=== PATIENT | female | born 1980 | race Caucasian/White ===

== ENCOUNTER 2023-06-10 09:17 | Emergency (ER) | payer BC, SELFPAY ==
[2023-06-10 09:20] VITALS: BP 117/77; PULSE 105; RESP 18; TEMP 36.2; O2SAT 100; BMI 22.5
[2023-06-10 09:35] LABS: Appearance Urine Slightly Cloudy (Clear); Bilirubin Urine Negative (Negative); Blood Urine Trace-intact (Negative); Color Urine Light yellow (Yellow); Glucose Urine Negative (Negative); Ketones Urine Negative (Negative); Leukocyte Esterase Urine Negative (Negative); Nitrite Urine Negative (Negative); Protein Urine Negative (Negative); Urobilinogen Urine 0.2 (0.2-1.0)
--- NOTE | 2023-06-10 09:39 | ED_ITS ---
HPI - General Adult General Chief complaint: Flank Pain Stated complaint: Kidney pain Time Seen by Provider: 06/10/23 09:38 History of Present Illness HPI narrative: left sided flank pain that started last evening 42-year-old woman presenting to the emergency department with concern of left flank pain since last night. Quite painful. Upon questioning does reveal a personal history of kidney stones. Has been maybe a year though sounds like there was more of an infectious process about a year ago when she was seen at [place]. Unsure about stone burden. Has never had to have intervention; has typically passed the stones on her own. She has not had a fever. No dysuria. Has just finally urinated here in the emergency department. She is feeling more discomfort into her abdomen but does not feel that if this is a stone that is really moved. Related Data Previous Rx's Medication Instructions Recorded venlafaxine 37.5 mg 37.5 mg PO QDAY #7 caps 02/13/23 capsule,extended release 24 hr venlafaxine 75 mg capsule,extended 75 mg PO QAM #7 caps 02/13/23 release 24 hr venlafaxine 150 mg 150 mg PO QAM #30 caps 04/17/23 capsule,extended release 24 hr dextroamphetamine-amphetamine ER 30 mg PO QAM #30 caps 05/14/23 30 mg 24hr capsule,extend release (Adderall XR) dextroamphetamine-amphetamine ER 30 mg PO QAM #30 caps 05/14/23 30 mg 24hr capsule,extend release (Adderall XR) dextroamphetamine-amphetamine ER 30 mg PO QAM #30 caps 05/14/23 30 mg 24hr capsule,extend release (Adderall XR) dextroamphetamine-amphetamine 10 10 mg PO QDAY #30 tabs 05/16/23 mg tablet (Adderall) dextroamphetamine-amphetamine 10 10 mg PO QDAY #30 tabs 05/16/23 mg tablet (Adderall) dextroamphetamine-amphetamine 10 10 mg PO QDAY #30 tabs 05/16/23 mg tablet (Adderall) trazodone 50 mg tablet 50 - 150 mg (1 - 3 x 50 mg) PO QPM 05/16/23 #90 tabs ketorolac 10 mg tablet 10 mg PO QID PRN pain 5 days #15 06/10/23 tabs tamsulosin 0.4 mg capsule (Flomax) 0.4 mg PO DAILY #15 caps 06/10/23 Allergies Allergy/AdvReac Type Severity Reaction Status Date / Time No Known Allergies Allergy Unknown Verified 02/13/23 13:28 Review of Systems Status of ROS: Reports: 6 or more systems reviewed and unremarkable except as noted in History and below [facility] Medical History Back pain ?M54.9 - Dorsalgia, unspecified (ICD-10) Surgical History History of tubal ligation ?Z98.51 - Tubal ligation status (ICD-10) History of bilateral breast reduction surgery ?Z98.890 - Other specified postprocedural states (ICD-10) Family History (Updated 07/02/22 @ 10:31 by Darrius Nunn) Father Coronary artery disease Social History Narrative: does not drink alcohol does not use illicit drugs smoker- currently 1 ppd. has smoked for approx 20 years Smoking Status: Smoker, status unknown Exam Narrative: Exam Narrative: Pleasant. Clearly uncomfortable. Brow is furrowed in discomfort. She rolled over onto her right side facing her significant other. Her left hand is at her left low abdomen/flank area. She is breathing and mildly labored manner again I think representing her discomfort. Skin is warm and dry. She is well-perfused peripherally. Lungs appear to be clear. Heart is in an elevated rate regular rhythm. Abdomen is quite sore to percussion in the left flank. Less sore to palpation into the left abdomen. Const: Vital Signs, click to edit/add: Vital Signs - 24 hr 06/10/23 09:20 Temperature 97.2 F L Pulse Rate [Right Pulse Oximeter] 105 H Respiratory Rate 18 Blood Pressure [Ri ght Upper Arm] 117/77 Pulse Oximetry 100 Oxygen Delivery Me thod Room Air Documenting provider has reviewed patient's vital signs: yes Course Vital Signs Vital signs: Initial Vital Signs Temperature 97.2 F L 06/10/23 09:20 Temperature Source Temporal Artery Scan 06/10/23 09:20 Pulse Rate 105 H 06/10/23 09:20 Respiratory Rate 18 06/10/23 09:20 Blood Pressure 117/77 06/10/23 09:20 Blood Pressure Mean 90 06/10/23 09:20 Blood Pressure Position Sitting 06/10/23 09:20 Pulse Oximetry 100 06/10/23 09:20 Oxygen Delivery Method Room Air 06/10/23 09:20 Vital Signs Temperature 97.2 F L 06/10/23 09:20 Pulse Rate 105 H 06/10/23 09:20 Respiratory Rate 18 06/10/23 09:20 Blood Pressure 117/77 06/10/23 09:20 Pulse Oximetry 100 06/10/23 09:20 Oxygen Delivery Method Room Air 06/10/23 09:20 Temperature 97.2 F L 06/10/23 09:20 Pulse Rate 91 06/10/23 11:32 Respiratory Rate 16 06/10/23 11:32 Blood Pressure 117/77 06/10/23 09:20 Pulse Oximetry 96 06/10/23 11:32 Oxygen Delivery Method Room Air 06/10/23 11:32 Medical Decision Making MDM Narrative Medical decision making narrative: Given history I would presume ureteral stone and colic. Will evaluate though for infection yet in urinalysis still pending results. Given duration of time since it has been since she had a CT we will go ahead and image with this CT scan. Other differential does include diverticulitis, ovarian cyst or torsion, vascular disruption, radicular back pain, shingles eruption though she does not have any rash. IV was initiated. Clearly uncomfortable in given ketorolac and 4 mg of morphine. Zofran as well. This did help temporarily but pain escalated again. Was re-dosed with hydromorphone diphenhydramine proceeding. Seems to become nauseated with opiates CT scan abdomen and pelvis without contrast was reviewed by me. There are calcifications in the pelvis that I can not say for sure are related to the urinary tract system. I do not appreciate hydronephrosis. No stone burden. By my read somewhat enlarged bladder. When I ask Syeda about this though she indicates that did not have any trouble urinating here and seems to felt like she emptied. Urinalysis shows trace intact blood. No other indication of infection. She does endorse having some ovarian cysts in the past but has never had 1 rupture. Over-read of imaging by Radiology as below Impression: Mild right-sided pelvocaliectasis without evidence of definite obstructive radiopaque calculus. No evidence of left-sided hydronephrosis or radiopaque nonobstructive calculus. Moderate stool seen throughout the colon without evidence of focal abnormality. No definite acute intra-abdominal abnormality. She does report ultimately being diagnosed in the past with kidney stones though absent initial findings on imaging. No secondary findings to suggest ovarian cyst. No inflammatory changes to suggest diverticulitis. Presentation here today I would have expected either ruptured ovarian cyst or ureteral stone and colic. Suppose could have ureteral colic independent of a stone but again with full bladder and without hydronephrosis though there was some prominent renal pelvocaliectasis though on the right side and her discomfort is left-sided. White count also is elevated of unclear etiology. Over time in the emergency department overall improved. She felt she could manage at home. See patient discharge plan Medical Records Medical records reviewed: Yes I reviewed the patient's medical records Lab Data Lab results reviewed: Yes I reviewed the patient's lab results Labs: Lab Results 06/10/23 06/10/23 Range/Units 10:15 Unknown WBC 14.39 H (4.50-11.00) K/uL RBC 4.55 (4.00-5.20) m/uL Hgb 14.9 (12.0-16.0) gm/dL Hct 44.0 (33.0-51.0) % MCV 97 (80-100) fL MCH 33 (26-34) pg MCHC 34 (32-36) gm/dL RDW Coeff of Jerri 12.7 (11.5-15.5) % Plt Count 302 (140-440) K/uL Neut % (Auto) 82.2 H (42.0-72.0) % Lymph % (Auto) 11.7 L (20-44) % [place] % (Auto) 4.4 (0.0-11.0) % Eos % (Auto) 1.5 (0.0-7.0) % Baso % (Auto) 0.1 (0.0-3.0) % Neut # (Auto) 11.80 H (1.7-7.0) K/uL Lymph # (Auto) 1.70 (0.90-2.90) K/uL [place] # (Auto) 0.60 (0.00-0.90) K/UL Eos # (Auto) 0.20 (0.00-0.50) K/uL Baso # (Auto) 0.00 (0.00-0.30) K/uL Abs Immat Gran (auto) 0.00 (0.00-0.30) K/uL Imm/Tot Granulo (auto) 0.1 % Sodium 136 (135-149) mmol/L Potassium 4.5 (3.6-5.1) mmol/L Chloride 110 (96-114) mmol/L Carbon Dioxide 19 L (20-32) mmol/L Anion Gap 7 (7-15) mEq/L BUN 15 (5-24) mg/dL Creatinine 0.5 (0.5-1.5) mg/dL Estimated Creat Clear 131.89 Estimated GFR 120 ml/min Glucose 78 (60-115) mg/dL Calcium 8.8 (8.4-10.6) mg/dL Urine Color Light yellow (Yellow) Urine Appearance Slightly Cloudy A (Clear) Urine pH 6.0 (5.0-8.5) Ur Specific [place] 1.010 (1.000-1.030) Urine Protein Negative (Negative) Urine Glucose (UA) Negative (Negative) Urine Ketones Negative (Negative) Urine Blood Trace-intact A (Negative) Urine Nitrite Negative (Negative) Urine Bilirubin Negative (Negative) Urine Urobilinogen 0.2 (0.2-1.0) Ur Leukocyte Esterase Negative (Negative) Urine RBC 0-2 (0-2) Urine WBC 0-2 (0-5) Ur Squamous Epith Cells Moderate A (None-Few) Urine Bacteria Few A (None) Discharge Plan Discharge Clinical Impression: Acute neutrophilia, Flank pain Patient Disposition: Home w/ Parent or Adult Condition: Improved Additional Instructions: Focus on hydration with water. Can take up to 800 mg of ibuprofen per dose. If you prefer ketorolac is also available. Unfortunately tamsulosin/Flomax is not available in our [facility] and so I have sent your prescriptions to the pharmacy. Take the tamsulosin for presumed ureteral/urethral spasm and subsequent pain. Once your sure that things have settled down/stone passed probably do not need to take this medication anymore. Consider straining your urine over this next week. Return for marked increase in persistent pain, associated fever, repeated vomiting. Prescriptions: New ketorolac 10 mg tablet 10 mg PO QID PRN (Reason: pain) 5 Days Qty: 15 0RF tamsulosin [Flomax] 0.4 mg capsule 0.4 mg PO DAILY Qty: 15 0RF No Action venlafaxine 37.5 mg capsule,extended release 24hr 37.5 mg PO QDAY Qty: 7 0RF Rx Instructions: 1 po daily for 1 week then increase to 75mg venlafaxine 75 mg capsule,extended release 24hr 75 mg PO QAM Qty: 7 0RF Rx Instructions: 1 po daily for 1 week then increase 150mg venlafaxine 150 mg capsule,extended release 24hr 150 mg PO QAM Qty: 30 0RF dextroamphetamine-amphetamine [Adderall XR] 30 mg capsule,extended release 24hr 30 mg PO QAM Qty: 30 0RF dextroamphetamine-amphetamine [Adderall XR] 30 mg capsule,extended release 24hr 30 mg PO QAM Qty: 30 0RF dextroamphetamine-amphetamine [Adderall XR] 30 mg capsule,extended release 24hr 30 mg PO QAM Qty: 30 0RF trazodone 50 mg tablet 50 - 150 mg PO QPM Qty: 90 3RF dextroamphetamine-amphetamine [Adderall] 10 mg tablet 10 mg PO QDAY Qty: 30 0RF dextroamphetamine-amphetamine [Adderall] 10 mg tablet 10 mg PO QDAY Qty: 30 0RF dextroamphetamine-amphetamine [Adderall] 10 mg tablet 10 mg PO QDAY Qty: 30 0RF Follow Up/Referrals: Jasper Mercado PA-C [Primary Care Provider] - Stand Alone Forms: [facility] Info Instructions
[2023-06-10 09:54] LABS: RBC Urine 0-2 (0-2)
[2023-06-10 09:55] LABS: Bacteria Urine Few; Squamous Epithelial Cell Urine Moderate (None-Few); WBC Urine 0-2 (0-5)
--- NOTE | 2023-06-10 10:16 | CRLHL7_ITS ---
For Patients: As a result of the Century Cures Act, medical imaging exams and procedure reports are released immediately into your electronic medical record. You may view this report before your referring provider. If you have questions, please contact your health care provider. Indication: Left flank pain, history of stones Technique: Volumetric multidetector CT images of the abdomen and pelvis were without the administration of intravenous contrast. Comparison: None available. Findings: There is basilar atelectasis with mildly increased interstitial markings likely representing minimal pulmonary vascular congestion and calcified granuloma in the left lower lobe. The liver is normal in attenuation without intrahepatic biliary ductal dilatation. The gallbladder is unremarkable without evidence of radiopaque calculus. There is no significant common biliary ductal dilatation or abrupt cut off. The spleen is normal in attenuation and size. The stomach and duodenum are grossly unremarkable. The pancreas is normal in attenuation without significant atrophy. The adrenal glands are unremarkable. There is mild right-sided pelvocaliectasis without evidence of obstructive radiopaque calculus. There is moderate stool seen throughout the colon with minimal distal colonic diverticulosis without definite evidence of diverticulitis. The appendix is unremarkable. There is no significant mesenteric, retroperitoneal, or pelvic sidewall lymph nodes. The aorta is nonaneurysmal. There is no significant atherosclerotic disease appreciated. There is prior hysterectomy. There is no free fluid or free air. There is mild diastasis of the rectus musculature. The lumbar vertebral body heights are grossly maintained in satisfactory alignment without evidence of displaced fracture, lytic or blastic lesion. Impression: Mild right-sided pelvocaliectasis without evidence of definite obstructive radiopaque calculus. No evidence of left-sided hydronephrosis or radiopaque nonobstructive calculus. Moderate stool seen throughout the colon without evidence of focal abnormality. No definite acute intra-abdominal abnormality. Please note that all CT scans at this facility use dose modulation, iterative reconstruction, and/or weight-based dosing when appropriate to reduce radiation dose to as low as reasonably achievable. Dictated by Kee Bustos MD @ 06/10/2023 11:39:07 AM (Electronically Signed)
[2023-06-10 10:25] LABS: Basophils Percent Auto 0.1 % (0.0-3.0); Eosinophils Percent Auto 1.5 % (0.0-7.0); Hemoglobin* 14.9 gm/dL (12.0-16.0); Immature Granulocytes Pct Auto 0.1 %; Lymphocytes Percent Auto 11.7 % (20-44); Mean Corpuscular HGB Conc 34 gm/dL (32-36); Mean Corpuscular Hemoglobin 33 pg (26-34); Mean Corpuscular Volume 97 fL (80-100); Monocytes Percent Auto 4.4 % (0.0-11.0); Neutrophils Percent Auto 82.2 % (42.0-72.0); Platelet Count* 302 K/uL (140-440); RDW Coefficient of Variation % 12.7 % (11.5-15.5); Red Blood Count 4.55 m/uL (4.00-5.20); White Blood Count* 14.39 K/uL (4.50-11.00)
[2023-06-10] MEDS: 0.9 % SODIUM CHLORIDE 1000 ml 1,000 ML IV (10:25)
[2023-06-10] MEDS: KETOROLAC 30 MG/ML inj IVP (10:25)
[2023-06-10] MEDS: MORPHINE 4 MG/ML INJ IVP (10:26)
[2023-06-10] MEDS: ONDANSETRON 2 MG/ML inj 4 MG IVP (10:26)
[2023-06-10 10:27] VITALS: O2SAT 94
[2023-06-10 10:27] LABS: Slide Review Reflex No
[2023-06-10 10:30] VITALS: PULSE 104; RESP 20; O2SAT 95
[2023-06-10 10:44] LABS: Chloride* 110 mmol/L (96-114); Potassium* 4.5 mmol/L (3.6-5.1); Sodium* 136 mmol/L (135-149)
[2023-06-10 10:47] LABS: Anion Gap 7 mEq/L (7-15); Blood Urea Nitrogen* 15 mg/dL (5-24); Carbon Dioxide* 19 mmol/L (20-32); Creatinine* 0.5 mg/dL (0.5-1.5); Est. Creatinine Clearance* 131.89; Estimated Glomerular Filt Rate 120 ml/min; Glucose* 78 mg/dL (60-115)
[2023-06-10 10:48] LABS: Calcium* 8.8 mg/dL (8.4-10.6)
[2023-06-10] MEDS: HYDROmorphone 0.5 mg/0.5 ml inj IVP (11:27)
[2023-06-10] MEDS: diphenhydrAMINE 50 MG/ML inj 12.5 MG IVP (11:27)
[2023-06-10 11:32] VITALS: PULSE 91; RESP 16; O2SAT 96
== END 2023-06-10 12:47 | disposition home or self-care (01) ==
PROVIDERS: Emergency Provider Family Medicine; PCP Physician Assistant Medical
DX: D70.9 Neutropenia, unspecified (principal); R10.9 Unspecified abdominal pain
CPT/HCPCS: 36415; 74176; 80048; 81001; 85025; 87086; 94761; 96361; 96374; 96375; 99284; J1170; J1200; J1885; J2270; J2405; J7030

== ENCOUNTER 2023-11-18 18:30 | Emergency (ER) | payer BC, SELFPAY ==
[2023-11-18] VITALS (14 sets, daily range): BP systolic 113–138; BP diastolic 76–88; PULSE 88–99; RESP 20; TEMP 37.1; O2SAT 92–100; BMI 22.5
--- NOTE | 2023-11-18 18:59 | XR_ITS ---
Patient: ANA MARÍA VARGAS Facility:?[facility] Patient ID:?[id number] Site Patient ID:?[id number]. Site :?[id number] Study:?XRay-Chest 2 VIEW-11/18/2023 7:49:31 PM Ordering Physician:ALFA Final Report: INDICATION: Right lower chest and right upper quadrant pain. TECHNIQUE: Chest 2 views. COMPARISON: None. FINDINGS: Cardiovascular and mediastinum: Heart size and vasculature are normal in caliber and appearance. Lungs and pleural spaces: Mild right basilar patchy opacities. Left basilar calcified granuloma. No pleural effusions or pneumothorax. Bones and soft tissues: No significant findings. IMPRESSION: Mild right basilar patchy opacities, nonspecific may reflect atelectasis or infiltrates. Dictated by Anil Jasmine MD @ 11/18/2023 9:04:59 PM Signed by:?Anil Jasmine MD @11/18/2023 9:04:59 PM (Electronic Signature)
--- NOTE | 2023-11-18 19:13 | ED_ITS ---
HPI - General Adult General Date Seen: 11/18/23 Chief complaint: Chest Pain Stated complaint: R side chest pain Time Seen by Provider: 11/18/23 18:53 Source: patient Mode of arrival: ambulatory Limitations: no limitations History of Present Illness HPI narrative: Patient is a 43-year-old woman who presents with 4 days of gradually worsening right lower chest /right upper quadrant pain. She says initially was localized but now radiates to the back and to her shoulder blade. It hurts to take a deep breath, but she does not otherwise feel short of breath. She denies fever, cough, leg swelling or pain, she has had nausea but denies vomiting, appetite has been absent. She has not had any urinary symptoms, diarrhea, black or bloody stools. She denies history of similar pain. She denies significant medical history, no prior abdominal surgeries. She denies regular alcohol use. She does smoke cigarettes. No allergies. She has tried ibuprofen and Tylenol at home and says they have not helped at all. Pain is more severe when she lays down. Related Data Previous Rx's Medication Instructions Recorded dextroamphetamine-amphetamine 10 10 mg PO QDAY #30 tabs 11/13/23 mg tablet (Adderall) dextroamphetamine-amphetamine 10 10 mg PO QDAY #30 tabs 11/13/23 mg tablet (Adderall) dextroamphetamine-amphetamine 10 10 mg PO QDAY #30 tabs 11/13/23 mg tablet (Adderall) dextroamphetamine-amphetamine ER 30 mg PO QAM #30 caps 11/13/23 30 mg 24hr capsule,extend release (Adderall XR) dextroamphetamine-amphetamine ER 30 mg PO QAM #30 caps 11/13/23 30 mg 24hr capsule,extend release (Adderall XR) dextroamphetamine-amphetamine ER 30 mg PO QAM #30 caps 11/13/23 30 mg 24hr capsule,extend release (Adderall XR) trazodone 50 mg tablet 50 - 150 mg (1 - 3 x 50 mg) PO QPM 11/13/23 #90 tabs omeprazole 40 mg capsule,delayed 40 mg PO DAILY #10 caps 11/18/23 release Allergies Allergy/AdvReac Type Severity Reaction Status Date / Time No Known Allergies Allergy Unknown Verified 11/13/23 13:58 Review of Systems Status of ROS: Reports: 10 or more systems reviewed and unremarkable except as noted in History and below [facility] Medical History Anxiety ?F41.9 - Anxiety disorder, unspecified (ICD-10) Back pain ?M54.9 - Dorsalgia, unspecified (ICD-10) Surgical History History of tubal ligation ?Z98.51 - Tubal ligation status (ICD-10) History of bilateral breast reduction surgery ?Z98.890 - Other specified postprocedural states (ICD-10) Family History Father Coronary artery disease Social History Narrative: does not drink alcohol does not use illicit drugs smoker- currently 1 ppd. has smoked for approx 20 years Smoking Status: Smoker, status unknown Little interest or pleasure in doing things: not at all Feeling down, depressed, or hopeless: not at all Exam Narrative: Exam Narrative: Vital signs as noted above. In general, an alert, Nontoxic middle-aged woman. She looks uncomfortable. Bed is at 45?, she does not want it laid flatter. Head: Normocephalic, atraumatic. Eyes: Pupils are equal reactive. Extraocular movements are full. Conjunctivae are normal. no icterus. ENT: Mucous membranes are moist. Throat is normal. Neck: Supple without lymphadenopathy. Heart: Mildly tachycardic, regular. No obvious murmur. No obvious rub. Lungs: Clear bilaterally. No increased work of breathing, crackles or wheezes. Abdomen: Soft, nondistended. She has right upper quadrant tenderness, positive Hernandez sign. She does not have significant lower abdominal tenderness or left- sided abdominal tenderness. No rebound guarding or rigidity. Extremities: Well perfused. No edema. No calf tenderness. Pulses intact. Neurologic: Patient is alert and oriented to person and place. Speech is fluent. Face is symmetric. Moves all extremities equally. Affect: Normal. Skin: Warm and dry. Well perfused. Const: Vital Signs, click to edit/add: Vital Signs - 24 hr 11/18/23 18:45 11/18/23 18:58 11/18/23 19:30 Temperature 98.8 F Pulse Rate 97 Pulse Rate [Pulse Oximeter] 95 Respiratory Rate 20 Blood Pressure Blood Pressure [Ri ght Upper Arm] 138/88 Pulse Oximetry 97 97 97 Oxygen Delivery Me thod Room Air 11/18/23 19:31 11/18/23 19:32 11/18/23 19:50 Temperature Pulse Rate 95 99 88 Pulse Rate [Pulse Oximeter] Respiratory Rate Blood Pressure 130/87 Blood Pressure [Ri ght Upper Arm] Pulse Oximetry 95 95 98 Oxygen Delivery Me thod 11/18/23 20:00 11/18/23 20:01 11/18/23 20:15 Temperature Pulse Rate 94 88 92 Pulse Rate [Pulse Oximeter] Respiratory Rate Blood Pressure 116/76 Blood Pressure [Ri ght Upper Arm] Pulse Oximetry 99 99 100 Oxygen Delivery Me thod 11/18/23 20:30 11/18/23 20:31 11/18/23 20:45 Temperature Pulse Rate 93 93 96 Pulse Rate [Pulse Oximeter] Respiratory Rate Blood Pressure 135/80 Blood Pressure [Ri ght Upper Arm] Pulse Oximetry 92 94 97 Oxygen Delivery Me thod 11/18/23 21:00 11/18/23 21:01 Temperature Pulse Rate 92 96 Pulse Rate [Pulse Oximeter] Respiratory Rate Blood Pressure 113/85 Blood Pressure [Ri ght Upper Arm] Pulse Oximetry 92 93 Oxygen Delivery Me thod Documenting provider has reviewed patient's vital signs: yes Course Course ED Course: Patient presents with gradually worsening right upper quadrant/ right lower chest pain for the past several days. She does have abdominal tenderness, symptoms seem more likely to be intra-abdominal or retroperitoneal rather than in the chest, but diagnostic considerations also include pneumonia, pulmonary embolism, pleural effusion, pneumothorax. Also consider cholecystitis, biliary colic, pancreatitis, renal colic, pyelonephritis, diverticulitis among others. Appendicitis felt to be less likely given the absence of any lower abdominal tenderness. Initial interventions include placement of an IV, an EKG, medications to include Toradol, morphine, Zofran and a L of normal saline. Labs ordered. I did a bedside ultrasound, I did not see significant wall thickening nor obvious gallstones, worsening but I did order a formal right upper quadrant ultrasound. Labs pending. Patient had normal labs with the exception of white blood cell count of 13. Hemoglobin is 14.4, diff is unremarkable, metabolic panel is normal, lactate is 1.3, LFTs are normal, lipase 70, CRP was 0.5. Urinalysis is negative, test is negative. She did not have significant pain relief with Toradol and a total of 8 mg of morphine so I have given her 0.5 mg of Dilaudid. Right upper quadrant ultrasound primary limiting report is of a normal gallbladder, she was noted to have some dilated loops of small bowel and stomach seemed enlarged, CT scan of the abdomen is ordered to evaluate for possible obstruction, volvulus, internal hernia etcetera. Pain is improved after Dilaudid. She did have ongoing nausea and gave her [address] scan by my review did not show any acute findings, specifically no inflammatory changes, hydronephrosis, evidence of obstruction. Final radiology read is of a negative CT, without explanation for her pain. She did have a chest x-ray, there is a little bit of atelectasis or possibly infiltrate at the right base, however, she does not have any respiratory complaints, no fever, cough, shortness of breath or anything else really to suggest a diagnosis of pneumonia. I think this is an unlikely cause of her symptoms particularly in the setting of abdominal tenderness. Likewise, it D- dimer is negative, I do not think this represents pulmonary embolism. An EKG was done, this showed a normal sinus rhythm, ventricular rate of 94 beats per minute. No acute ST segment changes, no S 1q3 T3, no evidence of pericarditis and normal inflammatory markers. At this time I have discussed with her I do not have a clear explanation for her symptoms. She has had 4 days of continuous pain, my suspicion of biliary colic is rather low at this point, but a HIDA scan could be pursued if felt to be appropriate as an outpatient. For now, I have suggested discharge home, trial of proton pump inhibitor and prednisone, Zofran if needed. Primary care follow-up in the next couple of days if not gradually improving, return to the ER at any time for worsening pain, new symptoms such as fever, vomiting, shortness of breath etcetera. Vital Signs Vital signs: Initial Vital Signs Temperature 98.8 F 11/18/23 18:45 Temperature Source Temporal Artery Scan 11/18/23 18:45 Pulse Rate 95 11/18/23 18:45 Respiratory Rate 20 04/15/24 18:45 Blood Pressure 138/88 11/18/23 18:45 Blood Pressure Mean 104 11/18/23 18:45 Blood Pressure Position Sitting 11/18/23 18:45 Pulse Oximetry 97 11/18/23 18:45 Oxygen Delivery Method Room Air 11/18/23 18:45 Vital Signs Temperature 98.8 F 11/18/23 18:45 Pulse Rate 95 11/18/23 18:45 Respiratory Rate 20 11/18/23 18:45 Blood Pressure 138/88 11/18/23 18:45 Pulse Oximetry 97 11/18/23 18:45 Oxygen Delivery Method Room Air 11/18/23 18:45 Temperature 98.8 F 11/18/23 18:45 Pulse Rate 96 11/18/23 21:01 Respiratory Rate 20 11/18/23 18:45 Blood Pressure 113/85 11/18/23 21:01 Pulse Oximetry 93 11/18/23 21:01 Oxygen Delivery Method Room Air 11/18/23 18:45 Medications Administered Medications: Generic Name Dose Route Start Last Admin Trade Name Freq PRN Reason Stop Dose Admin Metoclopramide HCl 10 mg/ 102 mls @ 306 mls/hr 11/18/23 21:57 11/18/23 22:11 Sodium Chloride IVPB 11/18/23 21:58 306 mls/hr ONCE ONE Administration Discontinued Medications Generic Name Dose Route Start Last Admin Trade Name Freq PRN Reason Stop Dose Admin Hydromorphone HCl 0.5 mg 11/18/23 20:18 11/18/23 20:25 Hydromorphone 0.5 Mg/0.5 Ml Inj IVP 11/18/23 20:19 0.5 mg ONCE ONE Administration Sodium Chloride 1,000 mls @ 1,000 mls/hr 11/18/23 19:00 11/18/23 20:25 0.9 % Sodium Chloride 1000 Ml IV 11/18/23 19:59 Infused .Q1H EMILY Infusion Ketorolac Tromethamine 15 mg 11/18/23 19:00 11/18/23 19:22 Ketorolac 15 Mg/Ml Inj IVP 11/18/23 19:01 15 mg ONCE ONE Administration Morphine Sulfate 4 mg 11/18/23 19:00 11/18/23 19:22 Morphine 4 Mg/Ml Inj IVP 11/18/23 19:01 4 mg ONCE ONE Administration Morphine Sulfate 4 mg 11/18/23 20:02 11/18/23 20:07 Morphine 4 Mg/Ml Inj IVP 11/18/23 20:03 4 mg ONCE ONE Administration Ondansetron HCl 4 mg 11/18/23 19:00 11/18/23 19:22 Ondansetron 2 Mg/Ml Inj IVP 11/18/23 19:01 4 mg ONCE ONE Administration Medical Decision Making Lab Data Labs: Lab Results 11/18/23 11/18/23 11/18/23 Range/Units 18:59 19:15 19:30 WBC 12.98 H (4.50-11.00) K/uL RBC 4.37 (4.00-5.20) m/uL Hgb 14.4 (12.0-16.0) gm/dL Hct 42.0 (33.0-51.0) % MCV 96 (80-100) fL MCH 33 (26-34) pg MCHC 34 (32-36) gm/dL RDW Coeff of Jerri 12.6 (11.5-15.5) % Plt Count 313 (140-440) K/uL Neut % (Auto) 50.4 (42.0-72.0) % Lymph % (Auto) 41.2 (20-44) % [place] % (Auto) 5.3 (0.0-11.0) % Eos % (Auto) 2.5 (0.0-7.0) % Baso % (Auto) 0.4 (0.0-3.0) % Neut # (Auto) 6.50 (1.7-7.0) K/uL Lymph # (Auto) 5.30 H (0.90-2.90) K/uL [place] # (Auto) 0.70 (0.00-0.90) K/UL Eos # (Auto) 0.30 (0.00-0.50) K/uL Baso # (Auto) 0.10 (0.00-0.30) K/uL Abs Immat Gran (auto) 0.00 (0.00-0.30) K/uL Imm/Tot Granulo (auto) 0.2 % D-Dimer Quant (PE/DVT) 0.17 (0.00-0.50) ug/ml Sodium 136 (135-149) mmol/L Potassium 4.1 (3.6-5.1) mmol/L Chloride 104 (96-114) mmol/L Carbon Dioxide 28 (20-32) mmol/L Anion Gap 4 L (7-15) mEq/L BUN 10 (5-24) mg/dL Creatinine 0.6 (0.5-1.5) mg/dL Estimated Creat Clear 108.79 Estimated GFR 114 ml/min Glucose 106 (60-115) mg/dL Lactate 1.3 (0.5-1.9) mmol/L Calcium 9.7 (8.4-10.6) mg/dL Total Bilirubin 0.4 (0.1-1.5) mg/dL Direct Bilirubin 0.2 (0.0-0.5) mg/dL AST 23 (12-35) U/L ALT 25 (4-35) U/L Alkaline Phosphatase 67 (40-150) U/L C-Reactive Protein < 0.5 L (0.5-1.0) mg/dL Total Protein 7.7 (6.0-8.3) g/dL Albumin 4.6 (3.3-5.0) g/dL Lipase 70 (23-300) U/L Urine Color Yellow (Yellow) Urine Appearance Clear (Clear) Urine pH 7.0 (5.0-8.5) Ur Specific [place] 1.010 (1.000-1.030) Urine Protein Negative (Negative) Urine Glucose (UA) Negative (Negative) Urine Ketones Negative (Negative) Urine Blood Negative (Negative) Urine Nitrite Negative (Negative) Urine Bilirubin Negative (Negative) Urine Urobilinogen 0.2 (0.2-1.0) Ur Leukocyte Esterase Negative (Negative) Urine RBC 0-2 (0-2) Urine WBC 2-5 (0-5) Ur Squamous Epith Cells Few (None-Few) Urine HCG, Qual Negative (Negative) POC Troponin I 0.01 (0.01-0.04) ng/ml Discharge Plan Discharge Clinical Impression: Right upper quadrant pain Patient Disposition: Home, Self-Care Condition: Improved Instructions: Abdominal Pain (ED) Additional Instructions: Medications as prescribed. Zofran if needed for nausea. Would recommend sticking with clear liquids over the next day, advanced as able. For worsening pain, new symptoms such as vomiting, fevers, shortness of breath, return to the emergency department. Otherwise, primary care follow-up if not gradually improving over the next couple of days. Prescriptions: New omeprazole 40 mg capsule,delayed release(DR/EC) 40 mg PO DAILY Qty: 10 2RF No Action trazodone 50 mg tablet 50 - 150 mg PO QPM Qty: 90 3RF dextroamphetamine-amphetamine [Adderall] 10 mg tablet 10 mg PO QDAY Qty: 30 0RF dextroamphetamine-amphetamine [Adderall] 10 mg tablet 10 mg PO QDAY Qty: 30 0RF dextroamphetamine-amphetamine [Adderall XR] 30 mg capsule,extended release 24hr 30 mg PO QAM Qty: 30 0RF dextroamphetamine-amphetamine [Adderall XR] 30 mg capsule,extended release 24hr 30 mg PO QAM Qty: 30 0RF dextroamphetamine-amphetamine [Adderall XR] 30 mg capsule,extended release 24hr 30 mg PO QAM Qty: 30 0RF dextroamphetamine-amphetamine [Adderall] 10 mg tablet 10 mg PO QDAY Qty: 30 0RF Follow Up/Referrals: Jasper Mercado PA-C [Primary Care Provider] - Stand Alone Forms: HeartThis Info Instructions
[2023-11-18] MEDS: 0.9 % SODIUM CHLORIDE 1000 ml 1,000 ML IV (19:22)
[2023-11-18] MEDS: ONDANSETRON 2 MG/ML inj 4 MG IVP (19:22)
[2023-11-18] MEDS: KETOROLAC 15 MG/ML inj IVP (19:22)
[2023-11-18] MEDS: MORPHINE 4 MG/ML INJ IVP ×2 (19:22→20:07)
[2023-11-18 19:23] LABS: Lactate Sepsis w/Reflex* 1.3 mmol/L (0.5-1.9)
[2023-11-18 19:24] LABS: Basophils Percent Auto 0.4 % (0.0-3.0); Eosinophils Percent Auto 2.5 % (0.0-7.0); Hemoglobin* 14.4 gm/dL (12.0-16.0); Immature Granulocytes Pct Auto 0.2 %; Lymphocytes Percent Auto 41.2 % (20-44); Mean Corpuscular HGB Conc 34 gm/dL (32-36); Mean Corpuscular Hemoglobin 33 pg (26-34); Mean Corpuscular Volume 96 fL (80-100); Monocytes Percent Auto 5.3 % (0.0-11.0); Neutrophils Percent Auto 50.4 % (42.0-72.0); Platelet Count* 313 K/uL (140-440); RDW Coefficient of Variation % 12.6 % (11.5-15.5); Red Blood Count 4.37 m/uL (4.00-5.20); Slide Review Reflex No; White Blood Count* 12.98 K/uL (4.50-11.00)
[2023-11-18 19:31] LABS: Troponin, Point-of-Care* 0.01 ng/ml (0.01-0.04)
--- OUTSIDE RECORDS SUMMARY | 2023-11-18 19:37 | XMS_ITS | Clinical Summary ---
Author Name Unknown Organization [facility] Address [address] [place] [id number] Care Team Providers [facility] Attendant Name Role Phone Unavailable Primary Care Provider Unavailabl e Allergies Active Allergy Reactions Criticality Noted Date Comments Morphine Nausea and Vomiting 12/08/2013 Medications Medication Sig Dispensed Refills Start Date End Date Status fluticasone (FLONASE) 50 MCG/ACT spray Lindsay 2 sprays into both nostrils daily Active Ibuprofen (ADVIL PO) Take 200-400 mg by mouth 3 times daily as needed for moderate pain Active ondansetron (ZOFRAN ODT) 4 MG ODT tab Take 1 tablet (4 mg) by mouth every 6 hours as needed 20 tablet 08/31/2019 Active amphetamine-dextroam phetamine (ADDERALL) 30 MG tablet Take 30 mg by mouth 2 times daily Active ondansetron (ZOFRAN ODT) 4 MG ODT tab Take 1 tablet (4 mg) by mouth every 8 hours as needed for nausea 10 tablet 06/13/2022 Active Active Problems Problem Noted Date Diagnosed Date Post-operative state 05/08/2018 CARDIOVASCULAR SCREENING; LDL GOAL LESS THAN 160 09/14/2009 Resolved Problems Problem Noted Date Diagnosed Date Resolved Date Cervicalgia 02/18/2009 04/18/2009 Lumbago 02/18/2009 04/18/2009 Spasm of muscle 02/18/2009 04/18/2009 Tension headache 02/18/2009 04/18/2009 Immunizations Name Administration Dates Next Due Mantoux Tuberculin Skin Test 03/16/2009,03/08/20 09 Social History Tobacco Use Types Packs/Day Years Used Date Smoking Tobacco: Some Days Cigarettes Smokeless Tobacco: Never Alcohol Use Standard Drinks/Week Comments Yes 0 (1 standard drink = 0.6 oz pur e alcohol) occasional Adolescent Education Answer Date Record ed Getting School Help Needed Not on file 05/19 Sex and Gender Information Value Date Recorded Sex Assigned at Not on file Gender Identity Not on file Sexual Orientation Not on file Last Filed Vital Signs Vital Sign Reading Time Taken Comments Blood Pressure 122/75 06/13/2022 1:45 PM COAT REPAIR INSPECTOR Pulse 86 06/13/2022 1:45 PM COAT REPAIR INSPECTOR Temperature 36.8 ??C (98.3 ??F) 06/13/2022 9:36 AM CS T Respiratory Rate 20 06/13/2022 9:36 AM COAT REPAIR INSPECTOR Oxygen Saturation 97% 06/13/2022 1:30 PM COAT REPAIR INSPECTOR Inhaled Oxygen Concentration - - Weight 68.9 kg (152 lb) 04/04/2022 11:35 AM CDT Height 165.1 cm (5' 5) 08/07/2019 10:53 AM COAT REPAIR INSPECTOR Body Mass Index 25.29 08/07/2019 10:53 AM COAT REPAIR INSPECTOR Plan of Treatment Health Maintenance Due Date Last Done Comments ADVANCE CARE PLANNING 1980 ANNUAL REVIEW OF HM ORDERS 1980 YEARLY PREVENTIVE VISIT 1980 Pneumococcal Vaccine: Pediatrics (0 to 5 Years) and At-Risk Patients (6 to 64 Years) (1 of 2 - PCV) 1986 HIV SCREENING 10/30/1995 HEPATITIS C SCREENING 1998 HEPATITIS B IMMUNIZATION (1 of 3 - 19+ 3-dose series) 10/30/1999 PAP 2001 DTAP/TDAP/TD IMMUNIZATION (2 - Tdap) 05/31/2005 05/30/2005 LIPID 2020 MAMMO SCREENING 03/08/2023 03/08/2021 COVID-19 Vaccine (1 - season) 2023 INFLUENZA VACCINE (#1) 2023 5, 04/28/2012, 06/05/2009, Additional history exists PHQ-2 (once per calendar year) 2023 GLUCOSE 06/13/2025 06/13/2022, 08/06, 05/09/2018, Additional history exists HPV IMMUNIZATION Aged Out No longer e ligible based on patient's age to complete this topic IPV IMMUNIZATION Aged Out No longer e ligible based on patient's age to complete this topic MENINGITIS IMMUNIZATION Aged Out No l onger eligible based on patient's age to complete this topic RSV MONOCLONAL ANTIBODY Aged Out No l onger eligible based on patient's age to complete this topic Procedures Procedure Name Priority Date/Time Associated Diagnosis Comments BASIC METABOLIC PANEL STAT 06/13/2022 9:39 AM COAT REPAIR INSPECTOR MA DIAGNOSTIC BILATERAL W/ CARLY Routine 03/08/2021 2:26 PM CDT Left breast lump from Last 3 Months or Most Recently Relevant to Health Maintenance Results * (ABNORMAL) Basic metabolic panel (BMP) (06/13/2022 9:39 AM COAT REPAIR INSPECTOR) Sodium 140 136 - 145 mmol/L 06/13/2022 10:14 AM [facility] Potassium 4.9 3.4 - 5.3 mmol/L 06/13/2022 10:14 AM [facility] Chloride 104 98 - 107 mmol/L 06/13/2022 10:14 AM [facility] Carbon Dioxide (CO2) 27 22 - 29 mmol/L 06/13/2022 10:14 AM [facility] Anion Gap 9 7 - 15 mmol/L 06/13/2022 10:14 AM [facility] Urea Nitrogen 15.3 6.0 - 20.0 mg/dL 06/13/2022 10:14 AM [facility] Creatinine 0.54 0.51 - 0.95 mg/dL 06/13/2022 10:14 AM [facility] Calcium 9.5 8.6 - 10.0 mg/dL 06/13/2022 10:14 AM [facility] Glucose 104(H) 70 - 99 mg/dL 06/13/2022 10:14 AM [facility] GFR Estimate >90 >60 mL/min/1.7 3m2 06/13/2022 10:14 AM [facility] Comment:Effective July 062020 eGFRcr in adults is calculated using the 2020 CKD-EPI creatinine equation which includes age and gender (Giles et al., NEJM, DOI: 10.1056/PONUix4144217) Blood STRUCTURE OF RIGHT UPPER LIMB / Unknown Venipuncture / Unknown 06/13/2022 9:39 AM COAT REPAIR INSPECTOR 06/13/2022 9:49 AM COAT REPAIR INSPECTOR Jimmie Montes MD LAB - BLOOD ORDERA BLES [facility] [address] Lab (1st floor, no room number) [place] [address], [facility] [phone] * MA Diagnostic Bilateral w/Carly (03/08/2021 2:26 PM CDT) Anatomical Region Laterality Modality Breast Bilateral Mammography Impressions 03/08/2021 2:50 PM CDT IMPRESSION: BI-RADS CATEGORY: 4 - Suspicious Abnormality-Biopsy Should Be Considered. RECOMMENDED FOLLOW-UP: Biopsy. Histology using ultrasound-guided core needle biopsy of the left breast at 6:00 is recommended. The results and recommendation were communicated to the patient at the conclusion of today's appointment. RUEL SALTER MD Narrative 03/08/2021 2:50 PM CDT DIAGNOSTIC MAMMOGRAM, BILATERAL, DIGITAL w/CAD AND TOMOSYNTHESIS - 03/08/2021 2:26 PM ULTRASOUND LEFT BREAST HISTORY: ??Left upper outer breast lump. COMPARISON: ??None. BREAST DENSITY: Heterogeneously dense. FINDINGS: ??No mammographic findings suspicious for malignancy in the right breast. There are round circumscribed masses in the left upper outer and left lower inner breast. Targeted ultrasound evaluation of the left breast at 12:30 o'clock 7 cm from the nipple at the site of palpable lump demonstrates an oval circumscribed 9 mm hypoechoic mass with tract extending towards the skin surface, consistent with a sebaceous cyst. This corresponds with the mammographic finding. Targeted ultrasound evaluation of the left breast at 6:00 7 cm from the nipple demonstrates an oval circumscribed hypoechoic mass measuring 1.0 x 0.5 x 0.8 cm, corresponding with the mammographic finding. Jony Tapia MD IMG MAMMOGRAPHY [facility] [place] from Last 3 Months or Most Recently Relevant to Health Maintenance Advance Directives For more information, please contact: [phone] * Full Code (Latest Code Status on File) Date Activated Date Inactivated Comments 05/08/2018 5:16 PM 05/09/2018 11:28 AM Question Answer Comments Code status determined by: Discussion with estuardo nt/legal decision maker
--- OUTSIDE RECORDS SUMMARY | 2023-11-18 19:37 | XMS_ITS | Referral Summary ---
Author Name Unknown Organization [facility] Address [address] [place] [address] Care Team Providers Care Service Support Representative Name Role Phone Unavailable Primary Care Provider Unavailabl e Allergies Active Allergy Reactions Criticality Noted Date Comments Morphine Nausea and Vomiting 12/08/2013 Medications Medication Sig Dispensed Refills Start Date End Date Status fluticasone (FLONASE) 50 MCG/ACT spray Wells 2 sprays into both nostrils daily Active [...] Comments Blood Pressure 122/75 06/13/2022 1:45 PM ROTARY DRYER OPERATOR Pulse 86 06/13/2022 1:45 PM ROTARY DRYER OPERATOR Temperature 36.8 ??C (98.3 ??F) 06/13/2022 9:36 AM CS T Respiratory Rate 20 06/13/2022 9:36 AM ROTARY DRYER OPERATOR Oxygen Saturation 97% 06/13/2022 1:30 PM ROTARY DRYER OPERATOR Inhaled Oxygen Concentration - - Weight 68.9 kg (152 lb) 04/04/2022 11:35 AM CDT Height 165.1 cm (5' 5) 08/07/2019 10:53 AM ROTARY DRYER OPERATOR Body Mass Index 25.29 08/07/2019 10:53 AM ROTARY DRYER OPERATOR Plan of Treatment Not on file Procedures Procedure Name Priority Date/Time Associated Diagnosis Comments BASIC METABOLIC PANEL STAT 06/13/2022 9:39 AM ROTARY DRYER OPERATOR MA DIAGNOSTIC BILATERAL W/ CARLY Routine 03/08/2021 2:26 PM CDT Left breast lump from Last 3 Months or Most Recently Relevant to Health Maintenance Results * (ABNORMAL) Basic metabolic panel (BMP) (06/13/2022 9:39 AM ROTARY DRYER OPERATOR) Sodium 140 136 - 145 mmol/L 06/13/2022 10:14 AM [facility] Potassium 4.9 3.4 - 5.3 mmol/L 06/13/2022 10:14 AM ROTARY DRYER OPERATOR [facility] Chloride 104 98 - 107 mmol/L 06/13/2022 10:14 AM [facility] Carbon Dioxide (CO2) 27 22 - 29 mmol/L 06/13/2022 10:14 AM [facility] Anion Gap 9 7 - 15 mmol/L 06/13/2022 10:14 AM [facility] Urea Nitrogen 15.3 6.0 - 20.0 mg/dL 06/13/2022 10:14 AM [facility] Creatinine 0.54 0.51 - 0.95 mg/dL 06/13/2022 10:14 AM [facility] Calcium 9.5 8.6 - 10.0 mg/dL 06/13/2022 10:14 AM [facility] DRYER OPERATOR [facility] Glucose 104(H) 70 - 99 mg/dL 06/13/2022 10:14 AM ROTARY DRYER OPERATOR [facility] GFR Estimate >90 >60 mL/min/1.7 3m2 06/13/2022 10:14 AM ROTARY DRYER OPERATOR [facility] Comment:Effective July 062020 eGFRcr in adults is calculated using the 2020 CKD-EPI creatinine equation which includes age and gender (Giles et al., NEJM, DOI: 10.1056/HDSVak8919708) Blood STRUCTURE OF RIGHT UPPER LIMB / Unknown Venipuncture / Unknown 06/13/2022 9:39 AM ROTARY DRYER OPERATOR 06/13/2022 9:49 AM ROTARY DRYER OPERATOR Jimmie Montes MD LAB - BLOOD ORDERA BLES [facility] Organization Address City/State/ZIP Co de Phone Number LABORATORY [facility] [address] [facility] (1st floor, no room number) [place] [address], [facility] [phone] * MA Diagnostic Bilateral w/Carly (03/08/2021 2:26 [...] mammographic finding. Jony Tapia MD IMG MAMMOGRAPHY HEENARic ZUL[place]A from Last 3 Months or Most Recently Relevant to Health Maintenance Advance Directives For more information, please contact: [phone] * Full Code (Latest Code Status on File) Date Activated Date Inactivated Comments 05/08/2018 5:16 PM 05/09/2018 11:28 AM Question Answer Comments Code status determined by: Discussion with patie nt/legal decision maker
--- OUTSIDE RECORDS SUMMARY | 2023-11-18 19:37 | XMS_ITS | Data Portability ---
Author Name Unknown Address [address] [place] [address] Phone [phone] Organization [facility] DUST COLLECTOR OPERATOR, [id number] Address [facility] [place] [id number] Assessment Encounter Date Assessment Date Assessment LastModified by Organization Details LastModified Time 03/02/2021 03/02/2021 Left breast lesion, 1-2 o'clock approximately 6 to 7 cm from the edge of the areola. The lesion is approximately 1-1.4 centimeters and appears to be in the dermis, not the actual breast tissue. Nonetheless, imaging will be performed to further identify this lesion. Total time spent in reviewing patient's history, discussion of patient's concerns, examination, interpreting test results, ordering additional tests, counseling with shared decision making and documentation was 20 minutes. Not available 03/04/2021 12:08:05 Plan of Treatment Reminders Order Date Submit Date Provider Last Modified By Organization Details Last Modified Time Details Appointments None recorded. Lab None recorded. Referral None recorded. Procedures None recorded. Surgeries None recorded. Imaging MAMMO, diagnostic, digital, bilateral 2020 021 [facility], [address], [address], [place], [address], 15:55:00 US, breast, unilateral 2020 021 [facility], [address], [address], [place], [address], 11:07:13 Medication Orders None recorded. Patient TargetsNo targets recorded. Patient Instructions Encounter Date Encounter Id Patient Instructions Last Modified By Organization Details Last Modified Time 03/02/2021 [id number] Proceed with bilateral diagnostic mammogram and left breast ultrasound. Further measures to be determined. Not available 03/04/2021 12:06:38 I discussed with Syeda the findings on examination and her clinical status. She does have what seems to be a cutaneous lesion in the upper outer quadrant of the left breast that seems to be involved with the dermis. The underlying breast examination is unremarkable. Nonetheless we will proceed with a diagnostic bilateral mammogram and left breast ultrasound in the area in question. Further measures to be determined. The patient was informed that I was unable to surgically excise this lesion in the office today. She will follow-up as indicated above with further measures to be determined after the imaging. Not available 03/04/2021 12:07:39 Reason for Referral None Reported. Results Created Date Observation Date Name Description Value Unit Range Abnormal Flag LastModifiedBy Organization Detail LastModifiedTime 03/08/20 21 03/08/2021 MAMMO , diagn ostic , digit al, bilat eral No observ ation record ed. [address] (Pulmonary Function) [address] [place], [address], 03/20/2021 17:09:52 03/08/20 21 03/08/2021 MAMMO , diagn ostic , digit al, bilat eral No observ ation record ed. [address] (Pulmonary Function) [address], [place], [address], 03/20/2021 17:09:52 03/09/20 21 03/08/2021 MAMMO , diagn ostic , digit al, bilat eral No observ ation record ed. [address] (Pulmonary Function) [address], [place], [address], 03/09/2021 11:29:58 08/0503/08/2021 US, breas t, unila teral No observ ation record ed. [address] (Pulmonary Function) [address], [place], [address], 03/09/2021 11:29:58 03/17/20 21 03/17/2021 US, breas t, unila teral No observ ation record ed. [address] (Pulmonary Function) [address], [place], [address], 03/17/2021 15:43:06 03/20/20 21 03/17/2021 US, breas t, unila teral No observ ation record ed. [email or web address] (Pulmonary Function) [address], [place], [address], 03/22/2021 19:47:54 Result Notes None recorded. Procedures Surgical History Date Name Laterality Status Provider Name and Address Organization Details Recorded Time Date of Last Mammogram completed ALLIE Morrow - DUST COLLECTOR OPERATOR 03/08/2021 16:48:09 ligation of bilateral fallopian tubes completed Not Available [facility] 03/14/2020 01:04:54 tooth extraction completed Not Available [facility] 03/14/2020 01:04:54 Breast reduction completed Not Available [facility] 03/14/2020 01:04:54 Imaging Results Imaging Date Name Status LastModified by [facility] Details LastModified Time 03/08/2021 MAMMO, diagnostic, digital, bilateral completed [address] (Pulmonary Function) [address] [place], [address], 03/20/2021 17:09:52 03/08/2021 MAMMO, diagnostic, digital, bilateral completed [address] (Pulmonary Function) [address] [place] [place], [address], 03/20/2021 17:09:52 03/08/2021 MAMMO, diagnostic, digital, bilateral completed [email or web address] [facility] (Pulmonary Function) [address] [place], [address], 03/09/2021 11:29:58 03/08/2021 US, breast, unilateral completed [address] (Pulmonary Function) [address] [place], [address], 03/09/2021 11:29:58 03/17/2021 US, breast, unilateral completed [address] (Pulmonary Function) [address] [place], [address], 03/17/2021 15:43:06 03/17/2021 US, breast, unilateral completed [facility] (Pulmonary Function) [address] [place], [address], 03/22/2021 19:47:54 Procedure Notes None recorded. Medical Equipment None Reported. Allergies Allergen ID Allergen Name Allergen Category Reaction Reaction Severity Criticality Documentation Date Start Date Code Code System Note Provider Name and Address Organization Details Recorded Time 712002 morphine sulfate medicatio n vomiting Not available Not available 03/11/2020 30872 RxNorm *Note : 08/31 - Not Available [facility] 0 16:58:44 Medications Name Sig Start Date Stop Date Status Note LastModified by Organization Details LastModified Time trazodone 50 mg tablet TAKE ONE TABLET BY MOUTH AT BEDTIME active Not Available Not Available No t Available azithromycin 250 mg tablet TAKE TWO TABLETS BY MOUTH ONE DOSE ON THE FIRST DAY, THEN TAKE ONE DAILY THEREAFTER. active Not Available Not Available Not Available tramadol 50 mg tablet TAKE ONE TO TWO TABLETS BY MOUTH EVERY 6 HOURS NEEDED active Not Available Not Available No t Available oxycodone-ac etaminophen 5 mg-325 mg tablet TAKE ONE TABLET BY MOUTH EVERY 4 TO 6 HOURS NEEDED FOR PAIN active Not Available Not Available No t Available alprazolam 0.5 mg tablet TAKE ONE TABLET BY MOUTH THREE TIMES A DAY NEEDED active Not Available Not Available No t Available dextroamphet amine-amphet amine ER 30 mg 24hr capsule,exte nd release TAKE ONE CAPSULE BY MOUTH EVERY DAY active Not Available Not Available No t Available dextroamphet amine-amphet amine 5 mg tablet TAKE ONE TABLET BY MOUTH EVERY DAY IN THE AFTERNOON AT APPROXIMATE LY 1P.M. NEEDED active Not Available Not Available No t Available Vitals Date Recorded Body mass index (BMI) Body height Body weight Systolic blood pressure Diastolic blood pressure Provider Name and Address Organization Details Last Updated DateTime 08/06/2019 24.53 kg/m2 167.64 cm 87236.04 024 g 118 mm[Hg] 74 mm[Hg] Not Available [facility] 0 08:41:59 Date Recorded Body mass index (BMI) Body height Body weight Systolic blood pressure Diastolic blood pressure Provider Name and Address Organization Details Last Updated DateTime 06/10/2018 27.92 kg/m2 167.64 cm 59376.48 001 g 102 mm[Hg] 64 mm[Hg] Not Available [facility] 0 08:41:59 Date Recorded Body height Body mass index (BMI) Body weight Systolic blood pressure Diastolic blood pressure Provider Name and Address Organization Details Last Updated DateTime 03/05/2018 167.64 cm 28.16 kg/m2 76381.86 8565 g 120 mm[Hg] 66 mm[Hg] Not Available [facility] 0 08:41:59 Date Recorded Body mass index (BMI) Body height Body weight Systolic blood pressure Diastolic blood pressure Provider Name and Address Organization Details Last Updated DateTime 05/15/2010 28.65 kg/m2 167.64 cm 58582.64 5675 g 114 mm[Hg] 52 mm[Hg] Not Available [facility] 0 08:41:59 Date Recorded Body mass index (BMI) Body height Body weight Systolic blood pressure Diastolic blood pressure Provider Name and Address Organization Details Last Updated DateTime 06/13/2016 27.36 kg/m2 167.64 cm 12182.90 6715 g 108 mm[Hg] 52 mm[Hg] Not Available [facility] 0 08:41:59 Date Recorded Body mass index (BMI) Body height Body weight Systolic blood pressure Diastolic blood pressure Provider Name and Address Organization Details Last Updated DateTime 05/04/2010 28.89 kg/m2 167.64 cm 91103.03 423 g 110 mm[Hg] 70 mm[Hg] Not Available [facility] 0 08:41:59 Date Recorded Body mass index (BMI) Body height Body weight Systolic blood pressure Diastolic blood pressure Provider Name and Address Organization Details Last Updated DateTime 02/22/2010 31.98 kg/m2 167.64 cm 74300.25 6268 g 104 mm[Hg] 60 mm[Hg] Not Available [facility] 0 08:41:59 Date Recorded Body height Body mass index (BMI) Body weight Systolic blood pressure Diastolic blood pressure Provider Name and Address Organization Details Last Updated DateTime 04/02/2012 167.64 cm 25.22 kg/m2 31976.80 7813 g 110 mm[Hg] 50 mm[Hg] Not Available [facility] 0 08:41:59 Date Recorded Body mass index (BMI) Body height Body weight Systolic blood pressure Diastolic blood pressure Provider Name and Address Organization Details Last Updated DateTime 04/18/2018 27.6 kg/m2 167.64 cm 39867.29 527 g 104 mm[Hg] 60 mm[Hg] Not Available [facility] 0 08:41:59 Date Recorded Body height Systolic blood pressure Diastolic blood pressure Provider Name and Address Organization Details Last Updated DateTime 08/10/2019 167.64 cm 112 mm[Hg] 76 mm[Hg] Not Available [facility] 03/14/2020 08:41:59 Date Recorded Body height Body mass index (BMI) Body weight Systolic blood pressure Diastolic blood pressure Provider Name and Address Organization Details Last Updated DateTime 08/01/2010 167.64 cm 28.08 kg/m2 84175.07 238 g 102 mm[Hg] 64 mm[Hg] Not Available [facility] 0 08:41:59 Date Recorded Body mass index (BMI) Body height Body weight Systolic blood pressure Diastolic blood pressure Provider Name and Address Organization Details Last Updated DateTime 07/14/2010 27.44 kg/m2 167.64 cm 76241.70 29 g 108 mm[Hg] 68 mm[Hg] Not Available [facility] 0 08:41:59 Date Recorded Body mass index (BMI) Body height Body weight Systolic blood pressure Diastolic blood pressure Provider Name and Address Organization Details Last Updated DateTime 08/26/2019 24.08 kg/m2 167.64 cm 49205.44 568 g 108 mm[Hg] 72 mm[Hg] Not Available [facility] 0 08:41:59 Date Recorded Body mass index (BMI) Body weight Body height Systolic blood pressure Diastolic blood pressure Provider Name and Address Organization Details Last Updated DateTime 05/18/2010 28.73 kg/m2 59849.44 186 g 167.64 cm 94 mm[Hg] 64 mm[Hg] Not Available [facility] 0 08:41:59 Date Recorded Body height Systolic blood pressure Diastolic blood pressure Provider Name and Address Organization Details Last Updated DateTime 06/15/2019 167.64 cm 102 mm[Hg] 68 mm[Hg] Not Available [facility] 03/14/2020 08:41:59 Date Recorded Body height Systolic blood pressure Diastolic blood pressure Provider Name and Address Organization Details Last Updated DateTime 07/20/2010 167.64 cm 102 mm[Hg] 64 mm[Hg] Not Available [facility] 03/14/2020 08:41:59 Date Recorded Body weight Body mass index (BMI) Body height Systolic blood pressure Diastolic blood pressure Provider Name and Address Organization Details Last Updated DateTime 03/02/2021 74880.3 g 26.6 kg/m2 167.64 cm 110 mm[Hg] 66 mm[Hg] ALLIE Banegas - DUST COLLECTOR OPERATOR 1 09:28:07 Social History Question Answer Notes LastModified by Organizat ion Details LastModified Time Tobacco Smoking Status Former Smoker Tobacco *Status: Former *Note: 08/31/2019 - Age Start/Stop: Not Available [facility] 03/14/2020 13:23:53 What Is Your Level Of Alcohol Consumption? None Alcohol *Status: Never *Note: Information not available 03/14/2020 What Is Your Level Of Caffeine Consumption? Occasional Caffeine *Status: Current Some Day *Note: Information not available 03/14/2020 History Of Domestic Violence No Denies All Domestic Violence Information not available 03/14/2020 Marital Status [email or web address] Information not available 03/14/2020 Sex: Female Functional Status Question Answer Note LastModified by Organizat ion Details LastModified Time What is your exercise level? Occasional Minimal Amount of Exercise (Once weekly or less) Information not available 03/14/2020 Mental Status None recorded. Family History Relationship Description Onset Age of this Age Resolved Age Notes Father Disorder of cardiovascular system Cardiovascular Disease Father Family history of Cardiovascular disease Heart disease Mother Family history of breast cancer Cancer Breast Medical History Condition Response Rheumatology- Fibromyalgia/Chronic Pain Urology- Kidney or Bladder Problems Eyes-other Dermatology-Other Gynecological History Statement/Question Response Date of Last Mammogram 03/08/2021 Obstetrics History GPAL:G 4 P 3 0 1 3 Type Value Multiple Births 0 Full Term 3 Induced 0 Spontaneous 1 Premature 0 Living 3 Ectopics 0 Total 4 Immunizations Vaccine Type Date Status Provider Name a nd Address Organization Details Recorded Time unknown 05/18/2010 completed Not Available [facility] 01:10:08 Past Encounters Encounter ID Performer Location Encounter Start Date Encounter Closed Date Diagnosis/Indication Diagnosis SNOMED-CT Code [id number] CAROLANN PERDOMO MD [id number] [address] [address] 03/02/2021 09:07:20 03/06/2021 17:56:43 Mass of left breast [id number] 03 Health Concerns Section Related Observation LastModified by Organization Detai ls LastModified Time None Recorded Concern Status LastModified by Organization Details LastModified Time None Recorded Advance Directives Directive None Recorded Payers Encounter Date Sequence Insurance Name Policy Number Policy Arriaga Covered Member ID Arriaga Member ID Guarantor Name 03/02/2021 1 [employer] [id number] Syeda Nagy [id number] Syeda Nagy Notes Date Note Type Note Provider Name and Address Organization Details Recorded Time 03/02/2021 text/html HPI Notes: Syeda presents to our office today for evaluation of a breast lump. She would like to have the lesion excised, today if possible. She reports that she felt this area in the upper outer quadrant of the left breast a couple of months ago. It seems to wax and wane with her cycle. At times it is larger and more tender, but at the present time it is present but somewhat smaller. Syeda became concerned about this lesion and she would like to have it removed. Patient has no menses in that she is status post [place] hyste[place] [address] [facility],[address], [place], [address], [place] - [employer] DUST COLLECTOR OPERATOR 03/04/2021 12:08:25 OBGyn Episode No OBEpisode recorded.
--- OUTSIDE RECORDS SUMMARY | 2023-11-18 19:37 | XMS_ITS | Encounter Summary ---
Author Name Unknown Organization [facility] Address [address], [place] [address] Care Team Providers Care Deliverer Outside Name Role Phone PcpRah MD Primary Care Provider [phone] Encounter Details Date Type Department Care Team (Latest Contact Info) Description 02/12/2017 Correspondence [facility] Occupational and Environmental Medicine [address] [place] [address] REFERRAL AND AUTHORIZATION Social History Tobacco Use Types Packs/Day Years Used Date Smoking Tobacco: Some Days Smokeless Tobacco: Never Alcohol Use Standard Drinks/Week Comments Yes 0 (1 standard drink = 0.6 oz pur e alcohol) weekends Sex and Gender Information Value Date Recorded Sex Assigned at Not on file Gender Identity Not on file Sexual Orientation Not on file documented as of this encounter Plan of Treatment Not on file documented as of this encounter Visit Diagnoses Not on filedocumented in this encounter Care Teams Deliverer Outside Relationship Specialty Start Date [place] [address] PCP - General 11/18/20 documented as of this encounter
--- OUTSIDE RECORDS SUMMARY | 2023-11-18 19:37 | XMS_ITS | Clinical Summary ---
Author Name Unknown Organization [facility] Address [place], [place] [address] Care Team Providers Care Citrus Fruit Colorer Name Role Phone Alex Riddle MD Primary Care Provider Allergies No known active allergies Medications Medication Sig Dispensed Refills Start Date End Date Status fluticasone, 50 mcg per actuation, nasal (FLONASE) 50 mcg/Actuation nasal spray Inhale 1 [place] into both nostrils once daily. 1 Bottle 3 03/28/2011 Active amoxicillin (AMOXIL) 500 mg capsule Take by mouth 2 times daily. 0 11/12/2011 Active Active Problems Problem Noted Date Diagnosed Date Preventative health care 11/12/2011 Overview: Normal PAP in 05/2011. Vicente Anthony horser up; Dr. De La O Major depressive disorder, recurrent episode, mo derate 09/29/2009 Anxiety state, unspecified 09/29/2009 Smoker 09/29/2009 Unspecified examination 09/29/2009 Overview: Cholesterol screen 11/06 was 151 Resolved Problems Problem Noted Date Diagnosed Date Resolved Date Supervision of other normal 10/10/2009 11/12/2011 Abdominal pain, right lower quadrant 10/10/2009 11/12/2011 Immunizations Name Administration Dates Next Due Influenza A (H1N1), Inactivated (Age >=3 Years) 06/05/2009 Influenza, IIV3 (Age >=3 years) 05/05/2009,05/30 Td (Age >=7 Years) 05/30/2005 Tuberculin (PPD) 03/12/2008 Family History Medical History Relation Name Comments Good Health Daughter Alcohol/Drug Father recovering alco holic Heart Disease Father couple [place]'s Hyperlipidemia Father Hypertension Father Other Maternal Grandfather Renee on's Other Maternal Grandmother Renee on, dementia, glaucoma Stroke Maternal Grandmother TIA Good Health Mother Psychiatric illness Mother depressi on/anxiety Heart Disease Paternal Grandfather [place] Diabetes Paternal Grandmother Hypertension Paternal Grandmother Good Health Sister pat half Good Health Son 1 Good Health Son 2 Relation Name Status Comments Daughter Alive Father Alive Maternal Grandfather (Age 78) pn [place] in a [place] Maternal Grandmother Alive Mother Alive Paternal Grandfather (Age 45) [place] Paternal Grandmother (Age 72) ki dney failure, dm Sister pat half Alive Son 1 Alive Son 2 Alive Social History Tobacco Use Types Packs/Day Years Used Date Smoking Tobacco: Every Day Cigarettes 0.5 13 Smokeless Tobacco: Never Comments:smokes off and on; will quit for long periods of time Alcohol Use Standard Drinks/Week Comments Yes 0 (1 standard drink = 0.6 oz pur e alcohol) Sex and Gender Information Value Date Recorded Sex Assigned at Not on file Gender Identity Not on file Sexual Orientation Not on file Obstetrics History Para Term AB IAB SAB Ectopic Multiple Livin g Live Births 3 3 3 3 Date Outcome GA Total Labor Labor/2nd/3rd Weight Sex Delivery Anes PTL Brandi A1 A5 Name Cl in Term Term Term Comments No complications with the pr egnancies. She was unable to breast feed due to the prior breast reduction. Last Filed Vital Signs Vital Sign Reading Time Taken Comments Blood Pressure 102/60 11/12/2011 11:26 AM CDT Pulse 80 11/12/2011 11:26 AM CDT Temperature 36.1 ??C (97 ??F) 11/12/2011 11:26 AM CDT Respiratory Rate 16 10/12/2009 7:00 AM HUMAN CAPITAL CONSULTANT Oxygen Saturation 98% 10/12/2009 7:00 AM HUMAN CAPITAL CONSULTANT Inhaled Oxygen Concentration - - Weight 80.3 kg (177 lb 1.6 oz) 11/12/2011 11:26 AM CDT Height 170.2 cm (5' 7) 11/12/2011 11:26 AM CDT Body Mass Index 27.74 11/12/2011 11:26 AM CDT Plan of Treatment Health Maintenance Due Date Last Done Comments Tdap 10/30/1991 Depression screening for age 12+ 1992 HIV for age 15-65 10/30/1995 BMI (ht and wt on same day) for age 18+ 1998 Hepatitis C screening for ag e 18-79 1998 Pap test for age 21-65 2001 Tetanus booster 05/30/2015 05/30/2005 COVID-19 vaccine series (2022- season) 2023 Influenza for age 9-49 04/05/2024 9, 05/05/2009, 05/30/2005 Pneumococcal series for age 6-64 Aged Out No longer eligible b ased on patient's age to complete this topic Advance Directives * Full Code (Latest Code Status on File) Date Activated Date Inactivated Comments 10/10/2009 2:27 PM 10/12/2009 6:25 PM Care Teams Citrus Fruit Colorer Relationship Specialty [place] [id number] [place] [address] PCP - General Family Practice 11/20/10
--- OUTSIDE RECORDS SUMMARY | 2023-11-18 19:37 | XMS_ITS | Clinical Summary ---
Author Name Unknown Organization [facility] Address [address] [place] [address] Care Team Providers Care Corrective And Manual Arts Therapist Name Role Phone Pcp, Pt Declines Primary Care Provider [phone] Source Comments You are receiving this document as you are listed as the primary care provider,follow-up provider, or the patient has been referred to you for consultation.This is in compliance with the Medicare and[facility] [employer] [employer] Incentive Program,which states Providers who transition their patient to another setting of careor provider of care or refers their patient to another provider of care shouldprovide summary care record for each transition of care or referral. [facility] Allergies Active Allergy Reactions Criticality Noted Date Comments Morpholine Salicylate Nausea And Vomiting 03/12 PN: severe vomiting Medications Medication Sig Dispensed Refills Start Date End Date Status amphetamine-dextroamphe tamine (ADDERALL) 30 MG tablet Take 30 mg by mouth daily. Active traZODone (DESYREL) 100 MG tablet Take 100 mg by mouth daily at bedtime. Active Immunizations Name Administration Dates Next Due Flu Vac (3+ yrs) 07/25/2004 Hib (ActHIB) 05/15/1985 Social History Tobacco Use Types Packs/Day Years [...] Sign Reading Time Taken Comments Blood Pressure 92/64 03/12/2016 1:52 PM CDT Pulse 82 03/12/2016 1:52 PM CDT Temperature - - Respiratory Rate - - Oxygen Saturation 97% 03/12/2016 1:52 PM CDT Inhaled Oxygen Concentration - - Weight 74.1 kg (163 lb 6.4 oz) 11/18/2020 10:40 AM CDT Height 168.7 cm (5' 6.4) 11/18/2020 10:40 AM CD T Body Mass Index 26.06 11/18/2020 10:40 AM CDT Plan of Treatment Health Maintenance Due Date Last Done Comments Cervical Cancer Screening Due 1980 Hep C Screening (Preventive Services) 1980 Pneumococcal (1 - PCV) 1986 HIV Screening (Preventive Services) 1996 Adult Preventive Visit 1998 HepB (1) 10/30/1999 DTaP/Tdap/Td (1 - Tdap) 05/31/2005 05/30/2005 COVID-19 Vaccine ( - 2022-2 4 season) 2023 Influenza (#1) 2023 05/05/2009, 05/30/2005, 07/25/2004 Zoster/Shingles (1 of 2) 2030 Hib Completed 05/15/1985 HPV Vaccine Aged Out No longer eligi ble based on patient's age to complete this topic HepA Aged Out No longer eligi ble based on patient's age to complete this topic IPV (Polio) Aged Out No longer eligi ble based on patient's age to complete this topic MCV4 Aged Out No longer eligi ble based on patient's age to complete this topic Care Teams Corrective And Manual Arts Therapist Relationship Specialty Start Date End Date Pcp, [place] [address] PCP - General 11/18/20
[2023-11-18 19:41] LABS: Albumin* 4.6 g/dL (3.3-5.0); Chloride* 104 mmol/L (96-114)
[2023-11-18 19:42] LABS: Potassium* 4.1 mmol/L (3.6-5.1); Sodium* 136 mmol/L (135-149)
[2023-11-18 19:44] LABS: Creatinine* 0.6 mg/dL (0.5-1.5); Est. Creatinine Clearance* 108.79; Estimated Glomerular Filt Rate 114 ml/min
[2023-11-18 19:45] LABS: Alanine Aminotransferase* 25 U/L (4-35); Alkaline Phosphatase* 67 U/L (40-150); Anion Gap 4 mEq/L (7-15); Aspartate Amino Transferase* 23 U/L (12-35); Bilirubin Direct* 0.2 mg/dL (0.0-0.5); Bilirubin Total* 0.4 mg/dL (0.1-1.5); Blood Urea Nitrogen* 10 mg/dL (5-24); Calcium* 9.7 mg/dL (8.4-10.6); Carbon Dioxide* 28 mmol/L (20-32); Glucose* 106 mg/dL (60-115); Lipase* 70 U/L (23-300); Total Protein* 7.7 g/dL (6.0-8.3)
--- NOTE | 2023-11-18 19:51 | US_ITS ---
Patient: ANA MARÍA VARGAS Facility:?[facility] Patient ID:?[id number] Site Patient ID:?[id number]. Site :?1980 Study:?US-Abdomen RUQ-11/18/2023 8:25:22 PM Ordering Physician:TIA PEREZ Final Report: INDICATION: Right upper quadrant abdominal pain. TECHNIQUE: Ultrasound abdomen limited. Sonographic images of the right upper quadrant were obtained using garcia-scale and color Doppler images. COMPARISON: None. FINDINGS: Liver: Normal in size and echotexture. No suspicious masses. No intrahepatic biliary ductal dilatation. Gallbladder: No stones or sludge. Normal wall thickness. No pericholecystic fluid. Negative sonographic Hernandez`s sign. Common bile duct: 3 mm. Pancreas: Unremarkable. Right kidney: Normal in size. Normal echotexture and cortex. No suspicious masses, stones, or hydronephrosis. Vasculature: Proximal abdominal aorta and IVC are unremarkable. IMPRESSION: Unremarkable right upper quadrant ultrasound. Dictated by Anil Jasmine MD @ 11/18/2023 9:32:23 PM Signed by:?Anil Jasmine MD @11/18/2023 9:32:23 PM (Electronic Signature)
[2023-11-18 19:52] LABS: C Reactive Protein* < 0.5 mg/dL (0.5-1.0)
[2023-11-18 19:54] LABS: Bilirubin Urine Negative (Negative); Blood Urine Negative (Negative); Color Urine Yellow (Yellow); Glucose Urine Negative (Negative); Ketones Urine Negative (Negative); Leukocyte Esterase Urine Negative (Negative); Nitrite Urine Negative (Negative); Protein Urine Negative (Negative); Urobilinogen Urine 0.2 (0.2-1.0)
[2023-11-18 19:56] LABS: Appearance Urine Clear (Clear)
[2023-11-18 19:56] LABS: D Dimer Quantitative* 0.17 ug/ml (0.00-0.50)
[2023-11-18 20:00] LABS: Ur HCG Qualitative* Negative (Negative)
--- NOTE | 2023-11-18 20:18 | CT_ITS ---
Patient: ANA MARÍA VARGAS Facility:?[facility] Patient ID:?[id number] Site Patient ID:?[id number]. Site :?1980 Study:?CT-Abdomen/Pelvis W/66CC [id number]/15/2024 8:50:19 PM Ordering Physician:ANGELICA Final Report: INDICATION: Right upper quadrant abdomen pain and nausea. TECHNIQUE: CT abdomen and pelvis acquired with 66 cc Isovue 370 IV contrast. COMPARISON: None. FINDINGS: Lower chest: Unremarkable. Liver: Unremarkable. Normal in size and attenuation. No suspicious masses. Gallbladder and bile ducts: Unremarkable. No stones or inflammation. No biliary dilatation. Pancreas: Unremarkable. No mass or inflammation. Spleen: Unremarkable. Normal in size. No masses. Adrenal glands: Unremarkable. No nodules. Kidneys: Unremarkable. No suspicious masses, stones, or hydronephrosis. GI tract: Unremarkable. Normal in caliber. No sign of mass or inflammation. Normal appendix. Vasculature: Abdominal aorta is normal in caliber. Mesenteric arteries are patent. Lymph nodes: No lymphadenopathy. Peritoneum/Abdominal Wall: Unremarkable. No sign of mass or infiltration. No free air or significant free fluid. Pelvis: Unremarkable. Bones: Unremarkable for age. IMPRESSION: Unremarkable CT of the abdomen and pelvis. No findings to explain abdominal pain. Please note that all CT scans at this facility use dose modulation, iterative reconstruction, and/or weight-based dosing when appropriate to reduce radiation dose to as low as reasonably achievable. Dictated by Geraldo Whittaker MD @ 11/18/2023 10:10:40 PM Signed by:?Geraldo Whittaker MD @11/18/2023 10:10:40 PM (Electronic Signature)
[2023-11-18] MEDS: HYDROmorphone 0.5 mg/0.5 ml inj IVP (20:25)
[2023-11-18 20:41] LABS: RBC Urine 0-2 (0-2); Squamous Epithelial Cell Urine Few (None-Few)
[2023-11-18] MEDS: METOCLOPRAMIDE HCL 10 MG in 0.9 % SODIUM CHLORIDE 100 ml 100 ML 306 MG IVPB (22:11)
== END 2023-11-18 22:34 | disposition home or self-care (01) ==
PROVIDERS: Emergency Provider Emergency Medicine; PCP Physician Assistant Medical
DX: R10.11 Right upper quadrant pain (principal)
CPT/HCPCS: 36415; 71046; 74177; 76705; 80048; 80076; 81001; 81025; 83605; 83690; 84484; 85025; 85379; 86140; 93005; 94761; 96365; 96375; 99285; J1170; J1885; J2270; J2405; J2765; J7030; Q9967